=== PATIENT | male | born 1960 | race African-American/Black ===

== ENCOUNTER 2022-07-07 23:22 | Inpatient (IN) | payer BC ==
[2022-07-08] MEDS ORDERED: Diltiazem 125 MG/25 ML SDV ONE (00:28)
[2022-07-08 00:39] LABS: INR-International Normal Ratio 0.9; PTT 26.6 sec (22.9-36.1)
[2022-07-08 00:41] LABS: #Basophils 0.1 thou/uL (0.0-0.2); #Eosinphils 0.1 thou/uL (0.0-0.7); #Monocytes 0.5 thou/uL (0.11-0.59); #Neutrophils 4.3 thou/uL (1.40-6.50); %Basophils 1.2 % (0.0-1.0); %Eosinophils 1.2 % (0.0-10.0); %Lymphocytes 28.4 % (21.0-51.0); %Monocytes 7.6 % (0.0-10.0); %Neutrophils 61.6 % (42.0-75.0); Hemoglobin 13.7 g/dL (14.0-18.0); Mean Corpuscular Hemoglobin 32.7 pg (27.0-31.0); Mean Corpuscular Volume 93.4 fl (78.0-98.0); Mean Platelet Volume 6.7 fL (7.4-10.4); Platelet Count 324 10x3/uL (130-400); RBC Distribution Width 13.6 % (11.5-14.5); Red Blood Cell (RBC) Count 4.18 mill/uL (4.70-6.10)
[2022-07-08 00:46] LABS: ALT (SGPT) 12 U/L (8-55); AST (SGOT) 14 U/L (5-34); Albumin 4.2 g/dL (3.4-4.8); Alkaline Phosphatase 70 U/L (40-110); Anion Gap 17 mmol/L (10-20); BUN (Urea Nitrogen) 11 mg/dL (8.4-25.7); Bilirubin, Total 0.3 mg/dL (0.2-1.2); Calc. Creatinine Clearance 0 mL/min (70-130); Calcium 9.2 mg/dL (7.8-10.44); Carbon Dioxide 20 mmol/L (23-31); Chloride 107 mmol/L (98-107); Estimated GFR 88; Globulin 3.8 g/dL (2.4-3.5); Glucose 161 mg/dL (80-115); Potassium 3.2 mmol/L (3.5-5.1); Sodium 141 mmol/L (136-145)
[2022-07-08] MEDS ORDERED: Ondansetron ODT 4 MG TAB PO PRN (01:45)
[2022-07-08] MEDS ORDERED: Acetaminophen 325 MG TAB PO PRN (01:45)
[2022-07-08] MEDS ORDERED: Acetaminophen 650 MG Suppository PR PRN (01:45)
[2022-07-08] MEDS ORDERED: Ondansetron PF 4 MG/2 ML Vial IVP PRN (01:45)
[2022-07-08] MEDS ORDERED: Aspirin 325 mg Enteric Coated Tablet PO SCH ×2 (01:57→09:00)
[2022-07-08 02:27] LABS: Magnesium 1.8 mg/dL (1.6-2.6)
[2022-07-08 02:46] VITALS: BMI 37.9
[2022-07-08] MEDS ORDERED: Potassium Chloride 20 MEQ TAB ONE (02:49)
[2022-07-08] MEDS ORDERED: Aspirin 325 MG TAB ONE (02:49)
[2022-07-08] MEDS: Potassium Chloride 20 MEQ TAB PO SCH ×2 (02:53→04:30)
[2022-07-08] MEDS ORDERED: Enoxaparin 120 MG/0.8 ML SYRINGE SC SCH (03:00)
[2022-07-08 03:15] LABS: #Eosinphils 0.1 thou/uL (0.0-0.7); #Lymphocytes 1.6 thou/uL (1.20-3.40); #Monocytes 0.4 thou/uL (0.11-0.59); #Neutrophils 2.7 thou/uL (1.40-6.50); %Basophils 0.4 % (0.0-1.0); %Eosinophils 1.7 % (0.0-10.0); %Lymphocytes 33.1 % (21.0-51.0); %Monocytes 8.3 % (0.0-10.0); %Neutrophils 56.6 % (42.0-75.0); Hemoglobin 13.7 g/dL (14.0-18.0); Mean Corpuscular HGB CONC 36.4 g/dL (32.0-36.0); Mean Corpuscular Volume 93.2 fl (78.0-98.0); Mean Platelet Volume 6.4 fL (7.4-10.4); Platelet Count 316 10x3/uL (130-400); RBC Distribution Width 13.6 % (11.5-14.5); Red Blood Cell (RBC) Count 4.04 mill/uL (4.70-6.10); White Blood Cell (WBC) Count 4.7 10x3/uL (4.8-10.8)
[2022-07-08 03:35] LABS: Anion Gap 14 mmol/L (10-20); BUN (Urea Nitrogen) 10 mg/dL (8.4-25.7); Calc. Creatinine Clearance 145 mL/min (70-130); Calcium 9.1 mg/dL (7.8-10.44); Carbon Dioxide 23 mmol/L (23-31); Chloride 107 mmol/L (98-107); Estimated GFR 100; Glucose 114 mg/dL (80-115); Potassium 3.5 mmol/L (3.5-5.1); Sodium 140 mmol/L (136-145)
[2022-07-08 03:41] LABS: Troponin I 0.043 ng/mL (< 0.028)
[2022-07-08] MEDS ORDERED: Electrolyte Replacement Protocol 1 EACH FS SCH (06:00)
[2022-07-08] MEDS ORDERED: Furosemide 20 MG/2 ML VIAL SLOW IVP SCH (06:15)
[2022-07-08] MEDS ORDERED: Magnesium 2 GM/50 ML(in water) 2 GM in Premix Bag 1 BAG IVPB SCH (06:30)
[2022-07-08] MEDS ORDERED: Magnesium 2 GM/50 ML BAG (IN WATER) ONE (07:59)
[2022-07-08] MEDS ORDERED: Clopidogrel Bisulfate 75 MG TAB ONE (11:50)
[2022-07-08] MEDS: Clopidogrel Bisulfate 75 MG TAB PO SCH (12:07)
[2022-07-08] MEDS: Hydrochlorothiazide 25 MG TAB PO SCH (20:43)
[2022-07-08] MEDS: Atenolol 50 MG TAB PO SCH (20:44)
[2022-07-08] MEDS: Enoxaparin 120 MG/0.8 ML SYRINGE SC SCH (20:45)
[2022-07-08] MEDS ORDERED: Atorvastatin Calcium 40 MG TAB PO SCH (21:00)
[2022-07-09 04:47] LABS: #Eosinphils 0.1 thou/uL (0.0-0.7); #Lymphocytes 1.9 thou/uL (1.20-3.40); #Monocytes 0.5 thou/uL (0.11-0.59); #Neutrophils 4.5 thou/uL (1.40-6.50); %Basophils 0.5 % (0.0-1.0); %Eosinophils 2.1 % (0.0-10.0); %Lymphocytes 26.7 % (21.0-51.0); %Monocytes 6.9 % (0.0-10.0); %Neutrophils 63.9 % (42.0-75.0); Mean Corpuscular HGB CONC 34.8 g/dL (32.0-36.0); Mean Corpuscular Hemoglobin 31.9 pg (27.0-31.0); Mean Corpuscular Volume 91.8 fl (78.0-98.0); Mean Platelet Volume 6.7 fL (7.4-10.4); Platelet Count 301 10x3/uL (130-400); RBC Distribution Width 13.4 % (11.5-14.5); Red Blood Cell (RBC) Count 4.07 mill/uL (4.70-6.10)
[2022-07-09 04:58] LABS: Anion Gap 12 mmol/L (10-20); BUN (Urea Nitrogen) 12 mg/dL (8.4-25.7); Calc. Creatinine Clearance 130 mL/min (70-130); Calcium 9.5 mg/dL (7.8-10.44); Carbon Dioxide 24 mmol/L (23-31); Chloride 106 mmol/L (98-107); Estimated GFR 93; Glucose 114 mg/dL (80-115); Potassium 3.9 mmol/L (3.5-5.1); Sodium 138 mmol/L (136-145)
[2022-07-09] MEDS ORDERED: Fenofibrate Nanocrystallized 145 MG TAB PO SCH (09:00)
[2022-07-09] MEDS ORDERED: Lisinopril 20 MG TAB PO SCH (09:00)
[2022-07-09] MEDS ORDERED: Aspirin 81 mg Enteric Coated Tablet PO SCH (09:00)
[2022-07-09] MEDS: Enoxaparin 120 MG/0.8 ML SYRINGE SC SCH (09:04)
[2022-07-09] MEDS: Atenolol 50 MG TAB PO SCH (09:04)
[2022-07-09] MEDS: Hydrochlorothiazide 25 MG TAB PO SCH (09:05)
[2022-07-09] MEDS: Clopidogrel Bisulfate 75 MG TAB PO SCH (09:05)
[2022-07-09] MEDS ORDERED: Colchicine 0.6 MG TAB PO SCH ×2 (10:45→21:00)
[2022-07-09 19:34] VITALS: BP 160/75; TEMP 98.1
[2022-07-09] MEDS ORDERED: Apixaban 5 MG TAB PO SCH (21:00)
== END 2022-07-09 19:34 | disposition home or self-care (01) | DRG 310 ==
LOC: ERS 23:22 → ERHOLD 07-08 01:24 → 2NO 07-08 14:25
PROVIDERS: ADMIT Student in an Organized Health Care Education/Training Program; ATTEND Internal Medicine
DX: I48.0 Paroxysmal atrial fibrillation (principal); M10.9 Gout, unspecified; E78.5 Hyperlipidemia, unspecified; I10 Essential (primary) hypertension; I25.10 Atherosclerotic heart disease of native coronary artery without angina pectoris; E87.6 Hypokalemia; Z79.82 Long term (current) use of aspirin; Z95.5 Presence of coronary angioplasty implant and graft; Z79.899 Other long term (current) drug therapy; Z79.02 Long term (current) use of antithrombotics/antiplatelets; Z86.73 Personal history of transient ischemic attack (TIA), and cerebral infarction without residual deficits
CPT/HCPCS: 36415; 71045; 80048; 80053; 83735; 83880; 84443; 84484; 85025; 85379; 85610; 85730; 93005; 93306; 96361; 96365; 96366; 96376; J1650; J3475

== ENCOUNTER 2022-12-20 09:48 | Emergency (ER) | payer BC ==
[2022-12-20 11:26] LABS: Anion Gap 15 mmol/L (10-20); BUN (Urea Nitrogen) 8 mg/dL (8.4-25.7); Calc. Creatinine Clearance 0 mL/min (70-130); Calcium 9.4 mg/dL (7.8-10.44); Carbon Dioxide 25 mmol/L (23-31); Chloride 101 mmol/L (98-107); Estimated GFR 101; Glucose 108 mg/dL (80-115); Potassium 3.8 mmol/L (3.5-5.1); Sodium 137 mmol/L (136-145)
== END 2022-12-20 11:47 | disposition home or self-care (01) ==
LOC: ERS 09:48
DX: M10.9 Gout, unspecified (principal); E78.5 Hyperlipidemia, unspecified; I10 Essential (primary) hypertension; F17.200 Nicotine dependence, unspecified, uncomplicated; Z79.899 Other long term (current) drug therapy
CPT/HCPCS: 36415; 80048; 99283

== ENCOUNTER 2023-02-20 21:57 | Inpatient (IN) | payer BC ==
[2023-02-20 22:40] LABS: #Eosinphils 0.2 thou/uL (0.0-0.7); #Monocytes 0.7 thou/uL (0.11-0.59); #Neutrophils 4.2 thou/uL (1.40-6.50); %Basophils 0.2 % (0.0-1.0); %Eosinophils 2.3 % (0.0-10.0); %Lymphocytes 46.7 % (21.0-51.0); %Monocytes 7.1 % (0.0-10.0); %Neutrophils 43.6 % (42.0-75.0); Hemoglobin 12.4 g/dL (14.0-18.0); Mean Corpuscular HGB CONC 32.6 g/dL (32.0-36.0); Mean Corpuscular Hemoglobin 29.4 pg (27.0-31.0); Mean Platelet Volume 9.1 fL (7.4-10.4); Platelet Count 431 10x3/uL (130-400); RBC Distribution Width 14.3 % (11.5-14.5); Red Blood Cell (RBC) Count 4.22 mill/uL (4.70-6.10); White Blood Cell (WBC) Count 9.7 10x3/uL (4.8-10.8)
[2023-02-20 23:06] LABS: Troponin I Less than 0.010 ng/mL (< 0.028)
[2023-02-20 23:08] LABS: ALT (SGPT) 15 U/L (8-55); AST (SGOT) 14 U/L (5-34); Albumin 4.5 g/dL (3.4-4.8); Alkaline Phosphatase 77 U/L (40-110); Anion Gap 18 mmol/L (10-20); BUN (Urea Nitrogen) 18 mg/dL (8.4-25.7); Bilirubin, Total 0.2 mg/dL (0.2-1.2); Calc. Creatinine Clearance 0 mL/min (70-130); Calcium 9.5 mg/dL (7.8-10.44); Carbon Dioxide 18 mmol/L (23-31); Chloride 112 mmol/L (98-107); Estimated GFR 81; Globulin 3.1 g/dL (2.4-3.5); Glucose 157 mg/dL (80-115); Potassium 3.5 mmol/L (3.5-5.1); Protein, Total 7.6 g/dL (5.8-8.1); Sodium 144 mmol/L (136-145)
[2023-02-21] MEDS ORDERED: Famotidine/PF 20 mg/2ml Vial ONE (02:28)
[2023-02-21] MEDS ORDERED: Ondansetron PF 4 MG/2 ML Vial ONE (02:28)
[2023-02-21] MEDS ORDERED: Lidocaine 2% Viscous Solution 10 ML, Aluminum & Magnesium Hydroxide 30 ML SSW SCH (02:30)
[2023-02-21 03:16] LABS: Troponin I 0.114 ng/mL (< 0.028)
[2023-02-21] MEDS ORDERED: Morphine 4 MG/ML VIAL ONE (04:05)
[2023-02-21] MEDS ORDERED: Ondansetron ODT 4 MG TAB PO PRN (04:20)
[2023-02-21] MEDS ORDERED: Acetaminophen 325 MG TAB PO PRN (04:20)
[2023-02-21] MEDS ORDERED: Aspirin Chewable 81 MG TAB PO SCH (04:30)
[2023-02-21 05:45] VITALS: BMI 36.8
[2023-02-21 07:03] LABS: Troponin I 0.753 ng/mL (< 0.028)
[2023-02-21] MEDS ORDERED: Apixaban 5 MG TAB PO SCH (09:00)
[2023-02-21] MEDS ORDERED: Atenolol 50 MG TAB PO SCH ×2 (09:00→10:00)
[2023-02-21] MEDS ORDERED: Aspirin 81 mg Enteric Coated Tablet PO SCH (09:00)
[2023-02-21] MEDS ORDERED: FLU VACC QS2023-24(6MOS UP)/PF 60 MCG/0.5 ML SYRINGE IM ONE (09:00)
[2023-02-21] MEDS ORDERED: Colchicine 0.6 MG TAB PO SCH (09:00)
[2023-02-21 09:11] LABS: Troponin I 2.642 ng/mL (< 0.028)
[2023-02-21] MEDS: Lisinopril 20 MG TAB PO SCH (09:23)
[2023-02-21] MEDS: Hydrochlorothiazide 25 MG TAB PO SCH ×2 (09:23→16:59)
[2023-02-21] MEDS: dilTIAZem CD 120 MG CAP PO SCH (09:24)
[2023-02-21] MEDS: Famotidine 20 MG TAB PO SCH ×2 (09:24→20:54)
[2023-02-21] MEDS: Fenofibrate Nanocrystallized 145 MG TAB PO SCH (09:24)
[2023-02-21] MEDS: Aspirin Chewable 81 MG TAB PO SCH (09:25)
[2023-02-21] MEDS ORDERED: CATH FS PRN (10:00)
[2023-02-21] MEDS ORDERED: Enoxaparin 120 MG/0.8 ML SYRINGE SC SCH ×2 (10:00→21:00)
[2023-02-21] MEDS: Nitroglycerin 0.4 MG TAB (25 Tab Bottle) SL PRN ×5 (10:41→17:44)
[2023-02-21] MEDS ORDERED: Clopidogrel Bisulfate 75 MG TAB PO SCH (11:30)
[2023-02-21] MEDS ORDERED: Amlodipine 5 MG TAB PO SCH (16:00)
[2023-02-21] MEDS: Atorvastatin Calcium 40 MG TAB PO SCH (20:54)
[2023-02-21] MEDS: Atenolol 50 MG TAB PO SCH (20:54)
[2023-02-22 04:45] LABS: #Monocytes 0.7 thou/uL (0.11-0.59); #Neutrophils 5.5 thou/uL (1.40-6.50); %Basophils 0.1 % (0.0-1.0); %Eosinophils 0.4 % (0.0-10.0); %Lymphocytes 25.1 % (21.0-51.0); %Monocytes 8.6 % (0.0-10.0); %Neutrophils 65.6 % (42.0-75.0); Hematocrit 34.3 % (42.0-52.0); Hemoglobin 11.2 g/dL (14.0-18.0); Mean Corpuscular HGB CONC 32.7 g/dL (32.0-36.0); Mean Corpuscular Hemoglobin 29.4 pg (27.0-31.0); Mean Platelet Volume 9.3 fL (7.4-10.4); Platelet Count 321 10x3/uL (130-400); RBC Distribution Width 14.4 % (11.5-14.5); Red Blood Cell (RBC) Count 3.81 mill/uL (4.70-6.10); White Blood Cell (WBC) Count 8.4 10x3/uL (4.8-10.8)
[2023-02-22] MEDS ORDERED: Sodium Chloride 0.9% 1,000 ML IV SCH ×2 (06:00→13:30)
[2023-02-22] MEDS: Aspirin Chewable 81 MG TAB PO SCH (06:21)
[2023-02-22] MEDS: Lisinopril 20 MG TAB PO SCH (06:21)
[2023-02-22] MEDS: dilTIAZem CD 120 MG CAP PO SCH (06:21)
[2023-02-22] MEDS: Clopidogrel Bisulfate 75 MG TAB PO SCH (06:21)
[2023-02-22] MEDS: Fenofibrate Nanocrystallized 145 MG TAB PO SCH (06:22)
[2023-02-22] MEDS: Famotidine 20 MG TAB PO SCH ×2 (06:22→20:09)
[2023-02-22] MEDS: Atenolol 50 MG TAB PO SCH ×2 (06:22→20:31)
[2023-02-22 06:34] LABS: ALT (SGPT) 18 U/L (8-55); AST (SGOT) 68 U/L (5-34); Albumin 3.8 g/dL (3.4-4.8); Alkaline Phosphatase 65 U/L (40-110); Anion Gap 14 mmol/L (10-20); BUN (Urea Nitrogen) 11 mg/dL (8.4-25.7); Bilirubin, Total 0.7 mg/dL (0.2-1.2); Calc. Creatinine Clearance 136 mL/min (70-130); Calcium 9.2 mg/dL (7.8-10.44); Carbon Dioxide 21 mmol/L (23-31); Cardiac Risk 4.5 (Less than 4.5); Chloride 106 mmol/L (98-107); Cholesterol 141 mg/dl (< 200 Desired); Estimated GFR 98; Globulin 3.2 g/dL (2.4-3.5); Glucose 113 mg/dL (80-115); HDL Cholesterol 31 mg/dL (>60 Neg Risk); LDL Cholesterol, Calculated 75 mg/dL; Potassium 3.7 mmol/L (3.5-5.1); Sodium 137 mmol/L (136-145); Triglycerides 176 mg/dL (Less than 150)
[2023-02-22] MEDS: Allopurinol 100 MG TAB PO SCH (08:40)
[2023-02-22] MEDS: Amlodipine 5 MG TAB PO SCH (08:40)
[2023-02-22] MEDS: Hydrochlorothiazide 25 MG TAB PO SCH ×2 (08:51→17:17)
[2023-02-22] MEDS ORDERED: Nitroglycerin 0.1mg/Hour PATCH TD SCH (09:00)
[2023-02-22] MEDS ORDERED: Verapamil 5 MG/2 ML VIAL ONE (11:48)
[2023-02-22] MEDS ORDERED: Adenosine 6 MG/2 ML VIAL ONE (11:48)
[2023-02-22] MEDS ORDERED: Midazolam HCl 2 mg/2 ml Vial ONE (11:48)
[2023-02-22] MEDS ORDERED: Heparin 10,000 UNITS/ 10 ML VIAL ONE (11:48)
[2023-02-22] MEDS ORDERED: fentaNYL 50 mcg/mL 1 mL Vial ONE (11:48)
[2023-02-22] MEDS ORDERED: Nitroglycerin 50 MG/250 ML BOT 0 ML ONE (11:49)
[2023-02-22] MEDS ORDERED: Lidocaine 1% (PF) 30 ML VIAL ONE (11:49)
[2023-02-22] MEDS ORDERED: Acetaminophen/Codeine 30-300mg Tablet PO PRN ×2 (13:24)
[2023-02-22] MEDS ORDERED: Sodium Chloride 0.9% 200 ML IV PRN (13:24)
[2023-02-22] MEDS ORDERED: Nitroglycerin 0.4 MG TAB (25 Tab Bottle) SL PRN (13:24)
[2023-02-22] MEDS ORDERED: Iopamidol 370 76% 100 ML VIAL ONE (13:39)
[2023-02-22 17:39] LABS: Troponin I 9.726 ng/mL (< 0.028)
[2023-02-22] MEDS: Atorvastatin Calcium 40 MG TAB PO SCH (20:09)
[2023-02-22] MEDS ORDERED: Transdermal Patch Removal TOP SCH (21:00)
[2023-02-23 04:13] LABS: #Monocytes 0.7 thou/uL (0.11-0.59); #Neutrophils 5.5 thou/uL (1.40-6.50); %Basophils 0.1 % (0.0-1.0); %Eosinophils 0.4 % (0.0-10.0); %Lymphocytes 22.8 % (21.0-51.0); %Monocytes 8.5 % (0.0-10.0); %Neutrophils 68.1 % (42.0-75.0); Hematocrit 34.6 % (42.0-52.0); Hemoglobin 11.2 g/dL (14.0-18.0); Mean Corpuscular HGB CONC 32.4 g/dL (32.0-36.0); Mean Corpuscular Hemoglobin 28.9 pg (27.0-31.0); Mean Corpuscular Volume 89.2 fl (78.0-98.0); Mean Platelet Volume 9.7 fL (7.4-10.4); Platelet Count 313 10x3/uL (130-400); RBC Distribution Width 14.3 % (11.5-14.5); Red Blood Cell (RBC) Count 3.88 mill/uL (4.70-6.10)
[2023-02-23 05:08] LABS: Anion Gap 13 mmol/L (10-20); BUN (Urea Nitrogen) 11 mg/dL (8.4-25.7); Calc. Creatinine Clearance 126 mL/min (70-130); Carbon Dioxide 23 mmol/L (23-31); Chloride 105 mmol/L (98-107); Estimated GFR 94; Glucose 103 mg/dL (80-115); Potassium 3.7 mmol/L (3.5-5.1); Sodium 137 mmol/L (136-145)
[2023-02-23 05:35] LABS: Critical Call Chem Troponin I RESULT DECREASING; Troponin I 6.972 ng/mL (< 0.028)
[2023-02-23] MEDS: Aspirin Chewable 81 MG TAB PO SCH (08:48)
[2023-02-23] MEDS: Clopidogrel Bisulfate 75 MG TAB PO SCH (08:49)
[2023-02-23] MEDS: Allopurinol 100 MG TAB PO SCH (08:49)
[2023-02-23] MEDS: dilTIAZem CD 120 MG CAP PO SCH (08:49)
[2023-02-23] MEDS: Atenolol 50 MG TAB PO SCH (08:49)
[2023-02-23] MEDS: Hydrochlorothiazide 25 MG TAB PO SCH (08:49)
[2023-02-23] MEDS: Fenofibrate Nanocrystallized 145 MG TAB PO SCH (08:49)
[2023-02-23] MEDS: Lisinopril 20 MG TAB PO SCH (08:50)
[2023-02-23] MEDS: Famotidine 20 MG TAB PO SCH (08:50)
[2023-02-23] MEDS: Amlodipine 5 MG TAB PO SCH (08:50)
[2023-02-23] MEDS ORDERED: Apixaban 5 MG TAB PO SCH (09:00)
[2023-02-23] MEDS ORDERED: Isosorbide Mononitrate 30 MG ER.TAB PO SCH (09:00)
[2023-02-23 12:44] VITALS: BP 139/79; TEMP 98.5
== END 2023-02-23 14:50 | disposition home or self-care (01) | DRG 281 ==
LOC: ERS 21:57 → 2SE 02-21 03:45 → OBSVTOIN 02-21 17:19
PROVIDERS: ADMIT Student in an Organized Health Care Education/Training Program; ATTEND Hospitalist
PROC: 4A023N7 Measurement of Cardiac Sampling and Pressure, Left Heart, Percutaneous Approach (ICD-10-PCS; principal; 2023-02-22)
PROC: B2111ZZ Fluoroscopy of Multiple Coronary Arteries using Low Osmolar Contrast (ICD-10-PCS; 2023-02-22)
PROC: B2151ZZ Fluoroscopy of Left Heart using Low Osmolar Contrast (ICD-10-PCS; 2023-02-22)
DX: I21.4 Non-ST elevation (NSTEMI) myocardial infarction (principal); I50.32 Chronic diastolic (congestive) heart failure; I25.10 Atherosclerotic heart disease of native coronary artery without angina pectoris; M10.9 Gout, unspecified; I11.0 Hypertensive heart disease with heart failure; E78.5 Hyperlipidemia, unspecified; I48.0 Paroxysmal atrial fibrillation; E66.9 Obesity, unspecified; I08.1 Rheumatic disorders of both mitral and tricuspid valves; Z79.899 Other long term (current) drug therapy; Z79.82 Long term (current) use of aspirin; Z79.01 Long term (current) use of anticoagulants; Z95.5 Presence of coronary angioplasty implant and graft; Z86.73 Personal history of transient ischemic attack (TIA), and cerebral infarction without residual deficits; Z87.891 Personal history of nicotine dependence; Z68.36 Body mass index [BMI] 36.0-36.9, adult
CPT/HCPCS: 36415; 71045; 80048; 80053; 80061; 83880; 84484; 85025; 93005; 93306; 93454; 93798; 94760; 96372; 99152; C1760; C1769; C1894; G0378; J0153; J1644; J1650; J2001; J2250; J2270; J2405; J3010; J7050; Q9967; S0028

== ENCOUNTER 2025-03-12 08:42 | Observation (INO) | payer BC ==
[2025-03-12 09:20] LABS: #Basophils Less than 0.03 10x3/uL (0.0-0.2); #Eosinophils 0.07 10x3/uL (0.0-0.7); #Monocytes 0.38 10x3/uL (0.11-0.59); #Neutrophils 3.58 10x3/uL (1.40-6.50); %Basophils 0.4 % (0.0-1.0); %Eosinophils 1.3 % (0.0-10.0); %Lymphocytes 25.9 % (21.0-51.0); %Monocytes 6.9 % (0.0-10.0); %Neutrophils 65.3 % (42.0-75.0); Hematocrit 36.7 % (42.0-52.0); Hemoglobin 12.2 g/dL (14.0-18.0); Mean Corpuscular Hemoglobin 30.3 pg (27.0-31.0); Mean Corpuscular Volume 91.1 fL (78.0-98.0); Platelet Count 289 10x3/uL (130-400); Red Blood Cell (RBC) Count 4.03 mill/uL (4.70-6.10); White Blood Cell (WBC) Count 5.48 10x3/uL (4.8-10.8)
[2025-03-12 09:34] LABS: ALT (SGPT) 23 U/L (Less than 45); AST (SGOT) 33 U/L (11-34); Albumin 3.8 g/dL (3.1-4.5); Alkaline Phosphatase 67 U/L (40-110); Anion Gap 10 mmol/L (10-20); BUN (Urea Nitrogen) 13 mg/dL (8.4-25.7); Bilirubin, Total 0.4 mg/dL (0.3-1.2); Calc. Creatinine Clearance 0 mL/min (70-130); Calcium 9.1 mg/dL (7.8-10.44); Carbon Dioxide 25 mmol/L (23-31); Chloride 110 mmol/L (98-107); Globulin 3.1 g/dL (2.4-3.5); Glucose 135 mg/dL (80-115); Potassium 3.9 mmol/L (3.5-5.1); Sodium 141 mmol/L (136-145)
[2025-03-12] MEDS ORDERED: Nitroglycerin 0.4 MG TAB (25 Tab Bottle) SL PRN (12:06)
[2025-03-12 13:25] VITALS: BMI 40.0
[2025-03-12] MEDS ORDERED: Acetaminophen 325 MG TAB PO PRN (19:23)
[2025-03-12] MEDS ORDERED: Ondansetron PF 4 MG/2 ML Vial IVP PRN (19:24)
[2025-03-12] MEDS: Atenolol 50 MG TAB PO SCH (20:09)
[2025-03-12] MEDS: Sodium Bicarbonate Tab 325 MG TAB PO SCH (20:10)
[2025-03-12] MEDS ORDERED: Non-Formulary Item 1 EACH (Icosapent Ethyl [Vascepa] 0.5 GM Capsule) PO SCH (21:00)
[2025-03-12] MEDS ORDERED: Non-Formulary Item 1 EACH (Ranolazine [Ranolazine Er] 1,000 MG Tab.Er.12h) PO SCH (21:00)
[2025-03-12] MEDS ORDERED: Apixaban 5 MG TAB PO SCH (21:00)
[2025-03-12] MEDS ORDERED: Non-Formulary Item 1 EACH (Sodium Bicarbonate [Sodium Bicarbonate] 650 MG Tablet) PO SCH (21:00)
[2025-03-12 21:59] LABS: INR-International Normal Ratio 1.2; Prothrombin Time 15.3 sec (12.0-14.7)
[2025-03-13 05:14] LABS: #Basophils Less than 0.03 10x3/uL (0.0-0.2); #Eosinophils 0.09 10x3/uL (0.0-0.7); #Monocytes 0.44 10x3/uL (0.11-0.59); #Neutrophils 3.49 10x3/uL (1.40-6.50); %Basophils 0.2 % (0.0-1.0); %Eosinophils 1.5 % (0.0-10.0); %Lymphocytes 32.6 % (21.0-51.0); %Monocytes 7.3 % (0.0-10.0); %Neutrophils 58.2 % (42.0-75.0); Hematocrit 37.4 % (42.0-52.0); Hemoglobin 12.6 g/dL (14.0-18.0); Mean Corpuscular Hemoglobin 30.9 pg (27.0-31.0); Mean Corpuscular Volume 91.7 fL (78.0-98.0); Platelet Count 296 10x3/uL (130-400); Red Blood Cell (RBC) Count 4.08 mill/uL (4.70-6.10); White Blood Cell (WBC) Count 5.99 10x3/uL (4.8-10.8)
[2025-03-13 05:27] LABS: Anion Gap 13 mmol/L (10-20); BUN (Urea Nitrogen) 11 mg/dL (8.4-25.7); Calc. Creatinine Clearance 124 mL/min (70-130); Calcium 9.2 mg/dL (7.8-10.44); Carbon Dioxide 24 mmol/L (23-31); Cardiac Risk 3.9 (Less than 4.5); Chloride 109 mmol/L (98-107); Cholesterol 149 mg/dl (< 200 Desired); Glucose 114 mg/dL (80-115); HDL Cholesterol 38 mg/dL (>60 Neg Risk); LDL Cholesterol, Calculated 78 mg/dL; Magnesium 1.7 mg/dL (1.6-2.6); Potassium 4.0 mmol/L (3.5-5.1); Sodium 142 mmol/L (136-145); Triglycerides 166 mg/dL (Less than 150)
[2025-03-13] MEDS ORDERED: Isosorbide Mononitrate 30 MG ER.TAB.S PO SCH (09:00)
[2025-03-13] MEDS ORDERED: Non-Formulary Item 1 EACH (Lisinopril [Lisinopril] 40 MG Tablet) PO SCH (09:00)
[2025-03-13] MEDS ORDERED: FENOFIBRATE 160 MG PO SCH (09:00)
[2025-03-13] MEDS: Lisinopril 20 MG TAB PO SCH (09:16)
[2025-03-13] MEDS: Allopurinol 100 MG TAB PO SCH (09:16)
[2025-03-13] MEDS: Aspirin Chewable 81 MG TAB PO SCH (09:16)
[2025-03-13] MEDS: Isosorbide Mononitrate 60 MG ER.TAB PO SCH (09:17)
[2025-03-13 16:28] VITALS: BP 148/71; TEMP 97.9
[2025-03-13] MEDS: PNEUMOC 20-VAL CONJ-DIP CRM/PF 0.5 ML SYRINGE IM ONE (19:32)
[2025-03-13] MEDS: FLU (Fluarix Triv) 25-26 (6MOS UP)/PF 45 MCG/0.5 ML Syringe IM ONE (19:42)
[2025-03-13] MEDS ORDERED: Apixaban 5 MG TAB PO SCH (21:00)
[2025-03-14] MEDS ORDERED: Nitroglycerin 0.6mg/Hour PATCH TD SCH (09:00)
== END 2025-03-13 19:45 | disposition home or self-care (01) ==
LOC: ERS 08:42 → OBS 10:39
PROVIDERS: ADMIT Internal Medicine; ATTEND Internal Medicine
DX: I25.119 Atherosclerotic heart disease of native coronary artery with unspecified angina pectoris (principal); I12.9 Hypertensive chronic kidney disease with stage 1 through stage 4 chronic kidney disease, or unspecified chronic kidney disease; N18.2 Chronic kidney disease, stage 2 (mild); N40.0 Benign prostatic hyperplasia without lower urinary tract symptoms; I48.0 Paroxysmal atrial fibrillation; E78.5 Hyperlipidemia, unspecified; M10.9 Gout, unspecified; F17.210 Nicotine dependence, cigarettes, uncomplicated; F12.90 Cannabis use, unspecified, uncomplicated; Z95.5 Presence of coronary angioplasty implant and graft; Z86.73 Personal history of transient ischemic attack (TIA), and cerebral infarction without residual deficits; Z79.02 Long term (current) use of antithrombotics/antiplatelets; Z79.01 Long term (current) use of anticoagulants; Z79.899 Other long term (current) drug therapy
CPT/HCPCS: 36415; 71045; 80048; 80053; 80061; 83036; 83735; 83880; 84484; 85025; 85610; 90471; 90656; 90677; 93005; 96372; G0009; G0378; J1650